=== PATIENT | female | born 1970 | race Caucasian/White ===

== ENCOUNTER 2017-03-30 07:31 | Day surgery (SDC) | payer BC, OTHER ==
[~2017-03-30 07:31] MED LIST: RINGER'S SOLUTION,LACTATED 1,000 ML IV PRN; ceFAZolin SODIUM 2 GM in DEXTROSE 5 % IN WATER 50 ML IV PRN
[2017-03-30] MEDS ORDERED: RINGER'S SOLUTION,LACTATED 1,000 ML IV ONE (09:37)
[2017-03-30] MEDS ORDERED: BUPIVACAINE HCL/EPINEPHRINE 50 ML VIAL IJ ONE ×2 (10:35)
[2017-03-30] MEDS ORDERED: RINGER'S SOLUTION,LACTATED 1,000 ML IV PRN (11:44)
[2017-03-30] MEDS ORDERED: oxyCODONE HCL/ACETAMINOPHEN 1 TAB TABLET PO ONE (12:30)
[2017-03-30] MEDS ORDERED: ONDANSETRON HCL/PF 2 MG/ML VIAL IV ONE (13:00)
[2017-03-30 13:22] VITALS: BP 145/98
--- NOTE | 2017-03-30 15:58 | OR ---
Operative Report - Dictated Report Narrative: OPERATIVE REPORT DATE OF OPERATION: 03/30/2017 PREOPERATIVE DIAGNOSIS: Left breast mass POSTOPERATIVE DIAGNOSIS: Left breast mass (pathology pending) OPERATION: Excision of left breast mass SURGEON: Maria C Tang MD ANESTHESIA: Gen. Ana Carl CRNA INDICATIONS FOR PROCEDURE: The patient is a 47-year-old female with an enlarging mass in the left breast. FINDINGS: Complete excision to include previously placed biopsy clip according to tissue radiograph NARRATIVE OF PROCEDURE: The patient was identified preoperatively, the surgical site was marked, and prior to the administration of anesthetic a multidisciplinary timeout was observed. The patient was placed supine, SCDs were applied, and 2 g of intravenous Ancef administered. General anesthetic was administered. The patient's left breast was prepped with Betadine solution and the localization wire clipped. It was isolated with 4 sterile towels. The remainder the patient was covered with a sterile disposable drape. A 2 fingerbreadth skin incision was made to include the localization wire which was then followed into the breast tissue with electrocautery until the mass in question was identified. This was dissected free from surrounding breast tissue , delivered intact and submitted for a tissue radiograph which demonstrated removal of the mass and the previous post biopsy clip. The wound was inspected for hemostasis which appeared complete and after receiving a correct sponge needle and instrument count attention was turned to closing the wound. Breast space was obliterated with interrupted sutures of chromic and the skin was secured with a running subcuticular suture of 4-0 Vicryl. The operative site was washed and dried. A dressing of Dermabond, 4 x 4, and Medipore tape was applied. The operative procedure was terminated at this point. The patient tolerated the anesthetic and procedure well without complication. There was no measurable blood loss. 0.25% Marcaine with epinephrine was used for local anesthetic infiltration. The removed mass was submitted to pathology. The patient was transferred to the recovery room awake, extubated, in stable condition. The patient remained stable throughout appeared postoperative observation. She was able to tolerate a general diet, the dressing remained dry, and she was up without assistance. She was discharged home with instructions to leave the current dressing dry and intact for 48 hours but then she may shower and change dressing daily or as needed. She was given a prescription for Percocet 5/325 mg #6. She has phone numbers to call if needed for signs of wound infection or hematoma, and a return office appointment was made for 1 week. Reviewed and electronically signed
== END 2017-03-30 07:32 | disposition home or self-care (01) ==
LOC: AMB 07:31
PROVIDERS: ATTEND Surgery
PROC: 0HBU0ZX Excision of Left Breast, Open Approach, Diagnostic (ICD-10-PCS; principal; 2017-03-30)
DX: D24.2 Benign neoplasm of left breast